=== PATIENT | male | born 1945 | race Caucasian/White ===

== ENCOUNTER 2020-03-31 10:03 | Emergency (ER) | payer OTHER ==
[~2020-03-31] VITALS: Ht 167.6 cm; Wt 82.1 kg
[~2020-03-31 10:03] MED LIST: ADULT ASPIRIN R81 MG PO; CAPZASIN-HP42.5 GM TOP; IBUPROFEN400 MG PO; LIPITOR40 MG PO; LISINOPRIL10 MG PO; LOSARTAN POTASS50 MG PO; MELOXICAM7.5 MG PO; NASACORT10.8 ML NAS; OCEAN104 ML NAS; OCUVITE TABLET1 EAC1 PO; OMEPRAZOLE20 MG PO; VITAMIN D350 MC3 PO
[2020-03-31] MEDS ORDERED: OCUVITE ADULT1 EAC1 PO (11:09)
[2020-03-31] MEDS ORDERED: LIPITOR80 MG PO (12:13)
--- NOTE | 2020-03-31 13:54 | EKG ---
[facility] [address] [facility] [place] [address] Signed Normal sinus rhythm Normal ECG When compared with ECG of 15-JAN-2020 13:48, Criteria for Septal infarct are no longer present Borderline criteria for Lateral infarct are no longer present Confirmed by TK BAEZ DO ([id number]) on 03/31/2020 1:54:01 PM Electronically Signed By: TK BAEZ DO 03/31/20 1354 PATIENT NAME: CEE HONEYCUTT Electrocardiogram DATE OF : 47 PHYSICIAN: TK BAEZ DO REPORT #: [id number] REPORT IS CONFIDENTIAL AND NOT TO BE RELEASED WITHOUT AUTHORIZATION
== END 2020-03-31 12:52 | disposition home or self-care (01) ==
LOC: ED 10:03
DX: G45.9 Transient cerebral ischemic attack, unspecified (principal); I10 Essential (primary) hypertension; K21.9 Gastro-esophageal reflux disease without esophagitis; Z86.73 Personal history of transient ischemic attack (TIA), and cerebral infarction without residual deficits; Z79.899 Other long term (current) drug therapy
CPT/HCPCS: 70450; 70496; 70498; 80053; 84484; 85025; 85610; 85730; 93005; 93010; 99284-25; Q9967

== ENCOUNTER 2020-04-15 03:52 | Emergency (ER) | payer OTHER ==
[~2020-04-15] VITALS: Ht 167.6 cm; Wt 82.1 kg
[~2020-04-15 03:52] MED LIST changes: +LIPITOR80 MG PO; +OCUVITE ADULT1 EAC1 PO
--- OUTSIDE RECORDS SUMMARY | 2020-04-15 03:54 | XMS ---
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 Berta has no Care Guidelines for this patient. Jerald VISIT COUNT (12 [address] [facility] [address] [address] TOTAL 3 NOTE: Visits indicate total known visits. ED/C VISIT TRACKING (12 MO.) 04/15/2020 03:52 [facility] [address] [place] TYPE: Emergency COMPLAINT: - STOMACH PAIN 03/31/2020 10:04 [facility] [place] TYPE: Emergency COMPLAINT: - DIZZINESS DIAGNOSES: - Personal history of transient ischemic attack (TIA), and cerebral infarction without residual deficits - Dizziness and giddiness - Other skilled nursing (current) drug therapy - Gastro-esophageal reflux disease without esophagitis - Transient cerebral ischemic attack, unspecified - Essential (primary) hypertension 01/14/2020 20:41 [facility] [place] TYPE: Emergency COMPLAINT: - STROKE SYMPTOMS INPATIENT VISIT TRACKING (12 MO.) 01/14/2020 20:42 [facility] [place] TYPE: Observation COMPLAINT: - CVA DIAGNOSES: - Cerebral infarction, unspecified - rn long term care (current) use of aspirin - Gastro-esophageal reflux disease without esophagitis - Contact with and (suspected) exposure to other viral communicable diseases - Essential (primary) hypertension - Other skilled nursing (current) drug therapy [email or web address]
== END 2020-04-15 08:48 | disposition home or self-care (01) ==
LOC: ED 03:52
DX: K20.80 Other esophagitis without bleeding (principal); I10 Essential (primary) hypertension; K21.9 Gastro-esophageal reflux disease without esophagitis; Z86.73 Personal history of transient ischemic attack (TIA), and cerebral infarction without residual deficits; Z79.899 Other long term (current) drug therapy
CPT/HCPCS: 74160; 76705; 80053; 81001; 83690; 85025; 99284-25; J1170; J2405; J7030; Q9967

== ENCOUNTER 2020-08-10 07:48 | Inpatient (IN) | payer OTHER ==
[~2020-08-10] VITALS: Ht 167.6 cm; Wt 83.2 kg
[2020-08-10] MEDS ORDERED: CELEBREX50 MG PO (08:38)
[2020-08-10] MEDS ORDERED: OCUVITE TABLET1 EAC1 PO (08:40)
[2020-08-10] MEDS ORDERED: SINGULAIR10 MG PO (08:42)
[2020-08-10] MEDS ORDERED: NORVASC5 MG PO (08:45)
[2020-08-10] MEDS ORDERED: DILTIAZEM ER60 MG PO (08:45)
[2020-08-10] MEDS ORDERED: PROVENTIL HFA6.7 GM INH ×2 (08:51→08:52)
[2020-08-10] MEDS ORDERED: ALVESCO6.1 G1 INH ×2 (08:53→15:55)
[2020-08-10] MEDS ORDERED: CARAFATE1 GM PO (08:55)
--- NOTE | 2020-08-10 14:44 | NUR ---
PATIENT ADMITTED TO MED SURG, X2 GUARDS IN ROOM. PATIENT REPORTS NO NAUSEA, ABD PAIN 3/10.
--- NOTE | 2020-08-10 15:05 | NUR ---
ASSESSMENT COMPLETE. PT ALERT AND ORIENTED. STATES THAT PAIN IS IN RUQ; 3/10 CURRENTLY. CMS INTACT. IVF FLUSHED. IVF INFUSING PER ORDER. CHARGE NURSE ADRIANO DOING ADMITTING HX. NO FURTHER NEEDS AT THIS TIME.
[2020-08-10] MEDS ORDERED: LO-DOSE ASPIRIN81 M1 PO (15:50)
[2020-08-10] MEDS ORDERED: LIDOCAINE35.44 GM TOP (15:51)
[2020-08-10] MEDS ORDERED: ONDANSETRON ODT4 MG SL (15:53)
--- NOTE | 2020-08-10 16:18 | NUR ---
IN ROOM FOR PERPETUAL INVENTORY CLERK. PT REPORTS SOME NAUSEA. 4MG IV ZOFRAN ADMINISTERED PRIOR TO AMLODIPINE. PT THEN UP TO TOILET TO VOID. CARE HOME GUARDS ASSISTING PT TO TOILET. GUARDS TO CALL IF PT NEEDS HELP
--- NOTE | 2020-08-10 17:23 | NUR ---
CHECKED ON PT. PT SLEEPING LEFT LATERAL. 2 NEW GUARDS IN ROOM . CALL LIGHT WITHIN REACH.
--- NOTE | 2020-08-10 19:29 | NUR ---
SHIFT REPORT RECEIVED FROM YANIRA GONZALEZ. GUARDS IN ROOM. NO NEDEDS. CALL LIGHT IN REACH.
--- NOTE | 2020-08-10 20:42 | NUR ---
IN TO GET VITALS FOR RN, DUMPED URINAL AT THIS TIME, NO FURTHER NEEDS, RN IN RM ALSO
--- NOTE | 2020-08-10 20:58 | NUR ---
ASSESSMENT COMPLETED. SCHEDULED MEDS PROVIDED. PT ABD PAIN 6/10, PRN PAIN MED PROVIDED. GCS 15, A&O X4. LUNGS CLEAR, HEART TONES REGULAR. ABD SOFT, NONTENDER, PT STATES SLIGHTLY DISTENDED, BOWEL TONES ACTIVE. IV WNL, CDI, FLUSHED WELL. SCDs ON. CMS INTACT. PT IS NPO, TOLERATING WELL. IV FLUIDS INFUSING PER ORDER. NO OTHER NEEDS. GUARDS IN ROOM.
--- NOTE | 2020-08-10 21:56 | NUR ---
SCHEDULED MED PROVIDED. NO OTHER NEEDS. GUARDS IN ROOM.
--- NOTE | 2020-08-10 22:02 | NUR ---
IV PUMP WAS BEEPING, IT IS NOW INFUSING FINE PT DENIES NEEDS. CALL LIGHT IS CLOSE.
--- NOTE | 2020-08-11 00:05 | NUR ---
PT RESTING IN BED. GUARDS IN ROOM. NO NEEDS AT THIS TIME.
--- NOTE | 2020-08-11 02:08 | NUR ---
ASSESSMENT, VS AND I&O COMPLETED. GCS 15, A&O X4. LUNGS CLEAR, HEART TONES REGULAR. ABD SOFT, NONTENDER WITH PALPATION, MILDLY DISTENDED, BOWEL TONES ACTIVE. CMS INTACT. IV WNL, INFUSING PER ORDER. GUARDS IN ROOM. PT STATES PAIN IS 2/10, "FINE".
--- NOTE | 2020-08-11 02:10 | NUR ---
IN TO GET PT VITALS, NO FURTHER NEEDS
--- NOTE | 2020-08-11 06:00 | NUR ---
SCHEDULED MEDS PROVIDED. I.S. EDUCATION PROVIDED. VS AND I&O COMPLETED. NO OTHER NEEDS. GUARDS IN ROOM.
--- NOTE | 2020-08-11 06:30 | NUR ---
PT TOLERATED IV FLUIDS WELL LAST NIGHT. VSS. UOS. PAIN MANAGED WITH PRN MEDS. AFEBRILE. ABD SOFT, TENDER, BOWEL TONES ACTIVE, PT STATES MILDLY DISTENDED. PT TOLERATED MEDS WELL. IV WNL. NO NAUSEA. I.S. EDUCATION PROVIDED.
--- NOTE | 2020-08-11 08:12 | NUR ---
PATIENT AWAKE IN BED, 2 OFFICERS IN ROOM. PATIENT PROVIDED WITH PRE-SURGICAL WIPES. SMALL AMOUNT OF FRESH WATER AND CLEAN SPONGE FOR MOUTH PROVIDED WELL
--- NOTE | 2020-08-11 08:45 | NUR ---
IN TO GIVE PT MORNING MEDICATIONS. SURGICAL TUBING HUNG. PREOP CHECKLIST WAS COMPLETED PRIOR TO SHIFT CHANGE. BP MEDICATIONS GIVEN W/ SMALL SIPS OF WATER. SPONGES AT BEDSIDE FOR ORAL CARE. PT DENIES ANY ABDOMINAL PAIN AT THIS TIME. STATES HIS PAIN IS MORE CHRONIC NECK/BACK PAIN AND IS NOT BOTHERING HIM AT THE MOMENT. VSS. CALL LIGHT IN REACH. NO OTHER NEEDS AT THIS TIME.
--- NOTE | 2020-08-11 10:00 | NUR ---
SURGICAL WIPEDOWN COMPLETE AND PT GIVEN NEW GOWN. EOCI GUARDS ASSISTED W/ WIPEDOWN. PT DENIES ABD PAIN AT THIS TIME. TIME. BACK TO BED, SCD'S IN PLACE. CEFAZOLIN TAPED TO LR W/ SURGICAL TUBING. CALL LIGHT IN REACH.
--- NOTE | 2020-08-11 12:15 | NUR ---
PT TAKEN TO SURGERY BY FERNIE NIETO RN.
--- NOTE | 2020-08-11 15:54 | NUR ---
08/11/20 1554 Janeen Holder 1538- PT ARRIVES TO PACU NONAROUSABLE TO NOXIOUS STIMULI. PT SNORING. JAW THRUST PERFORMED AND SNORING CLEARS. RESP EVEN AND UNLABORED. OXYGEN SAT HIGH 90'S TO 100% ON 6L VIA MASK. GUARD AT THE BEDSIDE PLACING ANKLE RESTRAINTS. 1545- PT WAKES UP COUGHING. PT'S ABD HELD WHILE HE COUGHS. PT UPDATED THAT HE IS DONE WITH SURGERY AND IN THE RECOVERY ROOM. PT NODS HIS HEAD. PT REPORTS NO PAIN OR NAUSEA AND FALLS BACK TO SLEEP. 1551- SECOND GUARD ARRIVES TO PACU.
--- NOTE | 2020-08-11 16:30 | NUR ---
TO RETURNED TO UNIT VIA STRETCHER ACCOMPANIED BY MEDICAL OFFICE SPECIALIST CECILY. PT ON 2 L NC, MEDICAL OFFICE SPECIALIST REPORTS HE WAS DESATING TO HIGH 80'S ON ROOM AIR AFTER SURGERY. PT DENIES PAIN AT THIS TIME. ACTICOAT DRESSING TO RUQ C,D,I. BOWEL TONES HYPOACTIVE IN ALL REGIONS. LUNG SOUNDS CLEAR, DIM IN BASES. BLE WEAKNESS PT IS STILL VERY DROWSY AFTER SURGERY. DENIES NAUSEA. RESUMED LR @ 85 MLS/HR. EOCI GAURDS IN ROOM. NO OTHER NEEDS AT THIS TIME. SCD'S ON. CALL LIGHT IN REACH.
--- NOTE | 2020-08-11 17:30 | NUR ---
VSS. PT REMAINS ON 2 L @ 97%. REMAINS SLIGHTLY DROWSY THOUGH FULLY ORIENTED. DENIES PAIN & NAUSEA. TOLERATING SIPS OF WATER. ASKED IF HE'D LIKE TO ORDER DINNER, PT REFUSED. WILL CHECK BACK.
--- NOTE | 2020-08-11 18:39 | NUR ---
PATIENT IS RESTING IN BED, VITALS ARE STABLE, PATIENT RATES ABD PAIN 2/10 AND SEEMS TO BE COMFORTABLE. X2 GUARDS IN ROOM WITH PATIENT.
--- NOTE | 2020-08-11 19:20 | NUR ---
SHIFT REPORT RECEIVED FROM ROSANGELA GONZALEZ. PT RESTING IN BED, STATES PAIN IS 3/10. GUARDS IN ROOM.
--- NOTE | 2020-08-11 19:43 | NUR ---
IN ROOM TO COMPLETE POST-OP VS, VSS. pt ON RA, O2 SAT 93%. RR EVEN AND UNLABORED, 22. NO DISTRESS NOTED, pt AWOKE TO VOICE AND REPORTS PAIN IS STARTING TO FEEL "UNCOMFORTABLE". GUARDS X2 IN ROOM. NO FURTHER NEEDS AT THIS TIME, CALL LIGHT IN REACH. PRIMARY RN TOM BLEDSOE.
--- NOTE | 2020-08-11 20:24 | NUR ---
IN TO GET VITALS, I&Os IN, RN TO BE IN RM FOR MEDS, NO FURTHER NEEDS AT THIS TIME
--- NOTE | 2020-08-11 20:42 | NUR ---
ASSESSMENT COMPLETED. PAIN IN ABD 10/26, PRN PAIN MED PROVIDED. SCHEDULED MEDS PROVIDED. GCS 15, A&0 X4. LUNGS CLEAR, HEART TONES REGULAR. ABD SOFT, TENDER, PT STATES NORMAL, BOWEL TONES HYPOACTIVE. PT URINATING WELL. DRESSINGS INTACT. EARNEST WNL, SS DRAINAGE. CMS INTACT. IV WNL, CDI, FLUSHED WELL. GUARDS IN ROOM.
--- NOTE | 2020-08-11 22:25 | NUR ---
scheduled meds provided.
--- NOTE | 2020-08-12 00:22 | NUR ---
PT ABD PAIN 9/10, PRN PAIN MED PROVIDED. NO OTHER NEEDS. GUARDS IN ROOM.
--- NOTE | 2020-08-12 01:58 | NUR ---
IN TO GET 2 AM VITALS, ICE PACKS REFRESHED, NO FURTHER NEEDS
--- NOTE | 2020-08-12 02:28 | NUR ---
CALL LIGHT ON, IN TO ADJ SCDS, RT CUFF WAS LOOSE, RN IN TO ASSESS PT
--- NOTE | 2020-08-12 02:30 | NUR ---
ASSESSMENT COMPLETED. PT PAIN 5/10, DENIES NEED FOR INTERVENTION. ABD SOFT, TENDER, ALL SITES WNL. ABD MILDLY DISTENDED. CMS INTACT. SCDs ON. IV FLUIDS INFUSING PER ORDER. GUARDS IN ROOM.
--- NOTE | 2020-08-12 02:58 | NUR ---
CALL LIGHT ON, IN TO FIX SCDS AFTER PT WAS UP TO VOID, NO FURTHER NEEDS
--- NOTE | 2020-08-12 05:20 | NUR ---
IN TO GET VITALS WHILE RN WAS IN RM AND PT WAS AWAKE, URINAL EMPTIED AT THIS TIME, PT DECLINED A REFILL OF WATER AND IS CONTENT WITH USING THE ORAL SWABS
--- NOTE | 2020-08-12 05:20 | NUR ---
PT PAIN 6/10, SCHEDULED PAIN MED PROVIDED. SCHEDULED MED PROVIDED. EARNEST EMPTIED, 5ML SS DISCHARGE. DRESSINGS WNL, SMALL SS DISCHARGE AT EARNEST SITE. NO OTHER NEEDS AT THIS TIME. CALL LIGHT IN REACH.
--- NOTE | 2020-08-12 06:24 | NUR ---
PT PAIN MANAGED WITH SCHEDULED AND PRN PAIN MEDS. PT STATES HE HAS ACHES AND THEN SHOOTING PAINS RANGING FROM 5/10-9/10. PT IS PASSING GAS. ABD MILDLY DISTENDED, SOFT, TENDER, BOWEL TONES ACTIVE. DRESSINGS WNL, EARNEST SITE DRESSING CHANGED DUE TO SMALL AMOUNT OF SS DRAINAGE. EARNEST HAD 10 ML SS TOAL OUTPUT THIS SHIFT. PT TOLERATED SOME SNACKS LAST NIGHT. UOS. VSS.
--- NOTE | 2020-08-12 07:05 | NUR ---
HANDOFF REPORT RECEIVED FROM CABLE INSTALLATION MANAGER RN.
--- NOTE | 2020-08-12 08:18 | NUR ---
PT RESTING IN BED, PT RATING PAIN 7/10 TO ABD, GIVEN TORADOL PRN. PT ON ROOM AIR, LUNG SOUNDS CLEAR, DENIES SOB. PT DENIES NAUSEA, BOWEL TONES ACTIVE, HAS NOT PASSED FLATUS, DISCUSSED WALKING IN [place] TO HELP INCREASE GUT MOTILITY, PT AGREEABLE. CMS INTACT, WITHOUT EDEMA. SCDS IN PLACE. ABD WITH RUQ ACTICOAT DRESSING, CDI. UMBILICAL AND RUQ LAP SITES WITH STERI STRIPS, OLD DRAINAGE. EARNEST DRAIN WITH SMALL AMOUNT OF SEROSANGUINOUS DRAINAGE IN BUMB, LINE STRIPPED. DISCUSSED PLAN OF CARE. PT AWAITING BREAKFAST AND THEN PLAN FOR WALK IN [place] WITH NUNRSING STAFF. SAMY ARRIETA AT BEDSIDE.
[2020-08-12] MEDS ORDERED: ACETAMINOPHEN500 MG PO (10:48)
[2020-08-12] MEDS ORDERED: HYDROCODON-ACE1 EA10 PO (10:50)
--- NOTE | 2020-08-12 11:04 | OR ---
[facility] [address], [place] [address] Signed DATE OF OPERATION: 08/11/2020 SURGEON: Thomas Matthews MD PREOPERATIVE DIAGNOSES: 1. Acute calculous cholecystitis. 2. 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 POSTOPERATIVE DIAGNOSIS: Severe acute on chronic calculous cholecystitis; purulence within gallbladder. PROCEDURE: 1. Laparoscopic cholecystectomy converted to open cholecystectomy with intraoperative cholangiogram, prolonged, complicated, difficult. 2. Surgeon-directed fluoroscopy. ANESTHESIA: General endotracheal; Destinee Joycelyn, PROCESS ENG and local 20 mL of 0.25% Marcaine with epinephrine. INDICATION: This 74-year-old white man is a prisoner at [facility]. He presents to the emergency room on 08/10/2020 with right upper abdominal pain. He has had long standing right subscapular pain also, but generally known to have chronic back pain located elsewhere also. He had a similar episode in March of this past year. The patient has had persistent right upper abdominal pain. Previous imaging studies showed no sign of gallstones. A CT scan was performed under the direction of Dr. Field, which showed a 1.1 impacted gallstone, possibly in the cystic duct with subtle pericholecystic fat stranding and hyperemia within the adjacent liver, but without significant gallbladder wall thickening concerning for cholecystitis. There is diffuse gastric wall thickening suggestive of underlying gastritis. Additionally noted both now and in the past with imaging there was a duodenal diverticulum. The patient's liver enzymes are only mildly elevated with a bilirubin of 1.9 at admission and 2.1 today. His AST is normal, ALT elevated at 80, previously 129, alkaline phosphatase normal at 77. The patient has been given fluid resuscitation, IV antibiotics, and now to undergo cholecystectomy preferably by laparoscopic approach. The risk of bleeding, infection, bile duct injury, and so forth were reviewed in detail. Electronically Signed By: THOMAS MATTHEWS MD 08/12/20 1104 PATIENT NAME: CEE HONEYCUTT OPERATIVE REPORT DATE OF : 47 REPORT #: [id number] PHYSICIAN: THOMAS MATTHEWS MD PCP: IGOR CASON NP REPORT IS CONFIDENTIAL AND NOT TO BE RELEASED WITHOUT AUTHORIZATION [facility] [address], [place] [address] Signed I have reviewed also the CT scan closely with Dr. Simon and the area in question regarding stone, cystic duct findings and so forth are reviewed and diagnosis highly consistent with acute cholecystitis. FINDINGS: Severe inflammatory changes were noted in the subcostal area. Dense omental adhesions to the gallbladder were such that it simply could not be dissected free laparoscopically and on that basis, conversion open operation was required. On open operation, dense omental adhesions to the undersurface of gallbladder were reaffirmed. The plane was extremely difficult, friable and the gallbladder itself was somewhat decompressed, definitely thickened and markedly chronically and acutely inflamed. The duodenum itself was dissected free without visualization of the known duodenal diverticulum. The common duct was ultimately visualized, as was the cystic duct. The cystic duct was of uncertain viability. It did allow for cholangiogram, which showed no sign of filling defects within the biliary tree. Of special note, a 1.5 cm dark oval gallstone was noted that had indeed been impacted into the neck of the gallbladder and cystic duct. Within the gallbladder itself was what appeared to be purulent material and certainly no bile within the gallbladder. The extent of inflammation was so profound that bivalve cholecystectomy was required, but the cystic duct was well controlled. The cystic duct with its marginal viability was secured not with clips but rather with over-sewing using a 4-0 PDS suture. A drain was placed. Of note, the operation was quite prolonged, complicated and difficult lasting four times longer than usual. DESCRIPTION OF PROCEDURE: The patient was brought to the operating room, given a general endotracheal anesthetic. Preoperative antibiotic Ancef had been given. Sequential compression device stockings used and heparin subcutaneously administered. The abdomen was prepared with a chlorhexidine solution and draped sterilely. An infraumbilical incision was made and using an open Lily cannula technique pneumoperitoneum was achieved to a level of 14 mmHg of carbon dioxide gas. Intraabdominal inspection showed no signs of ascites or carcinomatosis. The liver had a mild chronically inflamed appearance but no cirrhosis proper. The omental adhesions to the undersurface of the liver were such that the gallbladder was not visualized at all at that point. Three additional trocars were placed in usual configuration in the subxiphoid, right midclavicular, and right anterior axillary line. Omental adhesions to the anterior abdominal wall were taken down with blunt electrocautery dissection. This allowed for dissection of omentum against the undersurface of the liver and the gallbladder. With meticulous care, a plane was created, but it was so intensely inflamed and densely inflamed that further dissection with a laparoscopic approach would be quite unlikely to be successful and conversion to open operation was deemed unavoidable. Electronically Signed By: THOMAS MATTHEWS MD 08/12/20 1104 PATIENT NAME: CEE HONEYCUTT OPERATIVE REPORT DATE OF : 47 REPORT #: [id number] PHYSICIAN: THOMAS MATTHEWS MD PCP: IGOR CASON NP REPORT IS CONFIDENTIAL AND NOT TO BE RELEASED WITHOUT AUTHORIZATION [facility] [address], [place] [address] Signed The trocars were removed under direct visualization showing no sign of bleeding. The infraumbilical fascial incision was reapproximated with 0 Vicryl suture. Utilizing at least one of the trocar sites, a right subcostal incision was made in the standard way using a #15 blade for division of the skin and subcutaneous tissue and electrocautery incising the anterior rectus sheath, the rectus muscle itself and the posterior rectus sheath and its attendant peritoneum. The abdomen was entered without problem. Then, a Bookwalter retractor was used. The dense omental adhesions to the gallbladder were quite profound. At 1st, it was thought possible he maybe developed a cholecystoenteric fistula, but with further dissection using blunt and minimal cautery dissection and sharp dissection, the gallbladder could be freed from surrounding omentum. Ultimately, the duodenum was identified as well. Mindful that there was a duodenal diverticulum, special care was taken in this regard as well. The gallbladder appeared to be contracted and essentially flat and partially intrahepatic. The gallbladder was quite markedly inflamed acutely but also chronically and markedly thickened and doughy. Consideration of possible neoplasm was also made, but under the circumstances more or likely inflamed only. It was clear that after exposure of the gallbladder with lengthy dissection that a bivalve approach was going to be necessary. Using electrocautery, the gallbladder wall was incised near the margin of the gallbladder on the liver edge superiorly and ultimately taken inferiorly. Upon entry into the gallbladder there appeared to be purulent material. This was Gram stain and cultured. There was no stone immediately visible. The back wall of the gallbladder was intensely inflamed and without obvious sign of retained typical mucosa. Dissection was carried towards the infundibulum, although the gallbladder was not large it was meticulously dissected so as to avoid any common duct injury or anything of that sort. Egress seen from what appeared to be the distal gallbladder was a dark 1.5 cm smooth oval gallstone likely that seen on CT scan. Further dissection allowed for identification of the cystic duct itself which appeared marginally viable. This was dissected medially and ultimately identified was the common bile duct which was completely unharmed and uninvolved. A tonsil clamp was applied to the cystic duct remnant and gallbladder and junction of the cystic duct was excised in its entirety. With careful manipulation, a cholangiocatheter was passed into the cystic duct remnant secured with a clip. Free flow of saline was noted. Using surgeon directed fluoroscopy, intraoperative cholangiography was undertaken showing free flow of contrast in biliary tree. There was somewhat of the delay in emptying into the duodenum and the distal ampulla was somewhat narrowed, but only for a few mm and flow into the duodenum was noted to be complete. The cystic duct was reasonably generous in its fluoroscopic appearance. Proximal filling showed no sign of abnormality. Re-establishment of exposure with the Bookwalter retractor was accomplished and Electronically Signed By: THOMAS MATTHEWS MD 08/12/20 1104 PATIENT NAME: CEE HONEYCUTT OPERATIVE REPORT DATE OF : 47 REPORT #: [id number] PHYSICIAN: THOMAS MATTHEWS MD PCP: IGOR CASON NP REPORT IS CONFIDENTIAL AND NOT TO BE RELEASED WITHOUT AUTHORIZATION [facility] [address] [place] [id number] Signed clips applied to cystic duct remnant. The cystic duct appeared to be of marginal viability and further dissection more medially was undertaken. It was not a large enough stump for which application of clips was deemed advisable and on that basis the cystic duct stump was oversewn with running 4-0 PDS suture, securing it completely. Irrigation was undertaken. The mucosa of the back wall of the gallbladder was left in situ and was cauterized. Through one of the trocar sites on the right side, a 7 mm flat Jarrod drain was placed in the subhepatic space and this was secured to the skin with nylon suture. Irrigation was undertaken and excess irrigation fluid suctioned free. Attention was turned towards closure. The posterior sheath and the anterior rectus sheath were reapproximated with running #1 PDS suture after irrigation of the muscular layer. Subcutaneous tissue was irrigated and skin closed with a running subcuticular 3-0 Vicryl. The umbilical trocar site was similarly reapproximated. The drain was attached to bulb suction. The patient was ultimately extubated and transferred to the recovery room in good condition having suffered no complications. Sponge, needle, and instrument counts were reported as correct x3. The operation was prolonged, complicated, and difficult related to extent of his inflammation dissection and requirement for an open procedure, and on that basis, would be considered quite challenging. MD MALINA Trimble/LAITHL /[id number] cc: MELISSA Urias MD Copies: IGOR CASON NP, BRET Electronically Signed By: THOMAS MATTHEWS MD 08/12/20 1104 PATIENT NAME: CEE HONEYCUTT OPERATIVE REPORT DATE OF : 47 REPORT #: [id number] PHYSICIAN: THOMAS MATTHEWS MD PCP: BLOODIGOR NP REPORT IS CONFIDENTIAL AND NOT TO BE RELEASED WITHOUT AUTHORIZATION [address] [place], [place] [address] Signed TIMA FIELD MD ~ Electronically Signed By: THOMAS MATTHEWS MD 08/12/20 1104 PATIENT NAME: CEE HONEYCUTT OPERATIVE REPORT DATE OF : 47 REPORT #: [id number] PHYSICIAN: THOMAS MATTHEWS MD PCP: IGOR CASON NP REPORT IS CONFIDENTIAL AND NOT TO BE RELEASED WITHOUT AUTHORIZATION
--- NOTE | 2020-08-12 11:28 | NUR ---
REPORT CALLED TO [facility] NURSE. DISCHARGE INSTRUCTIONS REVIEWED WITH PT. IV CATH REMOVED. DISCHARGE PACKET GIVEN TO [facility] BREAKFAST HOST. PT EATING LUNCH AND THEN WILL CALL TO GET DRESSED. PT DENIES OTHER NEEDS AT THIS TIME.
--- NOTE | 2020-08-13 13:29 | DS ---
[facility] [address], [place] [address] Signed ADMISSION DATE: 08/10/2020 DISCHARGE DATE: 08/12/2020 REASON FOR ADMISSION: This 74-year-old white man is a prisoner at [facility]. He was sent from the [facility] to the emergency room with concerns about poorly-controlled hypertension as well as ongoing right upper abdominal pain. His blood pressure was actually reasonably well controlled upon presentation. The patient has had right upper abdominal and right subscapular pain and an episode similar in March of 2020 at which time, he underwent a CAT scan of the abdomen which showed a large duodenal diverticulum. He also had a small hiatal hernia. The patient was put on a proton pump inhibitor medication as well as Carafate. Evaluation in the emergency room included a CT scan of the abdomen and ultrasound previously noted had showed no sign of gallstones. A CT scan performed on presentation on 08/10/2020 showed what appeared to be a 1.1 cm likely impacted stone in the cystic duct with pericholecystic fat stranding, hyperemia of the liver consistent with acute cholecystitis. He is admitted for further evaluation and care. PERTINENT PHYSICAL EXAMINATION: GENERAL: Showed a well-developed, well-nourished, nontoxic, elderly white man. He did have tenderness in the right upper abdomen. He did not have ascites. CHEST: Clear. HEART: Regular. ABDOMEN: Without distention, but did have tenderness in the right upper abdomen. EXTREMITIES: Show no clubbing, cyanosis, or edema. HOSPITAL COURSE: He was admitted, given intravenous antibiotic Ancef. Close review of the CT scan with radiologist affirmed the high probability of a gallstone wedged in the infundibulum or cystic duct itself. The duodenal diverticulum appeared to be noninflamed and non-perforated. Comparison views of prior imaging studies were undertaken. He did have some benign cystic-appearing lesions of the liver as well. On 11/11/2020, the patient underwent laparoscopy AND WAS found to have dense adherence of omentum to the undersurface of the liver as well as right upper abdominal wall. Lysis of adhesions allowed for better dissection, but a laparoscopic approach was found to be quite impossible to mobilize the omentum from the underlying gallbladder to which it was densely adhesed. On that basis, conversion to open operation was undertaken through a right subcostal incision. He was found to have [id number] inflammatory changes of Electronically Signed By: THOMAS MATTHEWS MD 08/13/20 1329 PATIENT NAME: CEE HONEYCUTT DISCHARGE SUMMARY DATE OF : 47 REPORT #: [id number] PHYSICIAN: THOMAS MATTHEWS MD PCP: KATE CASON NP REPORT IS CONFIDENTIAL AND NOT TO BE RELEASED WITHOUT AUTHORIZATION [facility] [address], [place] [address] Signed the gallbladder. The gallbladder was flattened, largely intrahepatic, and quite markedly and intensely inflamed. A bivalve cholecystectomy was performed, which showed purulence within the gallbladder lumen. A single 1.5 cm gallstone, which was oblong, smooth, and dark was extracted through the area of the infundibulum and cystic duct. The cystic duct was dissected free and although of uncertain viability, did allow for cholangiogram, which was essentially normal. The cystic duct was oversewn rather than clipped due to its marginal viability and a drain was placed. Postoperatively, he had marked improvement. There was no sign of bile leaking from the drain. Under normal circumstances, I would remove the drain. However, given the marginal viability of the cystic duct remnant that has been oversewn, it is more prudent to leave the drain in for at least 7 days and if no bile leak develops, remove at that point. If a bile leak does develop, obviously we would keep the drain in until it seal spontaneously which it would do. He will be discharged back to the [facility] with instructions to lift no more than 20 pounds for the next 4 weeks. The drain will remain in place. Emptying of the drain and maintenance of suction on the drain will be of importance. The drain can be removed by personnel at [facility] if they feel comfortable with it in 7 days so long as there was no bile leak. If a bile leak is noted, it should stay in place until the bile leak has resolved. I will be happy to remove the drain 7 days from now or later in the office setting if more comfortable by the [facility] personnel, however, the drain certainly can remain in place until I am back out at the [facility] the [facility] at the [facility] in the next few weeks. The patient will maintain a regular diet. DISCHARGE MEDICATIONS: Will include: 1. [place] 5/325 one p.o. q.6 hours p.r.n. pain #10. 2. Tylenol plain 1 g p.o. q.6 hours p.r.n. pain #30 refill one. 3. Motrin 600 mg p.o. q.6 hours p.r.n. pain #30 refill one. The patient will resume his other medications, which include: 1. Capsaicin cream, apply topically daily as needed. 2. Omeprazole 40 mg p.o. daily. 3. Atorvastatin 80 mg p.o. daily. 4. Celecoxib 100 mg p.o. b.i.d. 5. Ocuvite vitamin 1 p.o. daily. 6. Montelukast (Singulair) 10 mg tablets p.o. daily. Electronically Signed By: THOMAS MATTHEWS MD 08/13/20 1329 PATIENT NAME: CEE HONEYCUTT DISCHARGE SUMMARY DATE OF : 47 REPORT #: [id number] PHYSICIAN: THOMAS MATTHEWS MD PCP: KATE CASON NP REPORT IS CONFIDENTIAL AND NOT TO BE RELEASED WITHOUT AUTHORIZATION [facility] [address], [place] [address] Signed 7. Amlodipine (Norvasc) 5 mg p.o. daily. 8. Diltiazem 60 mg extended release p.o. b.i.d. 9. Albuterol sulfate inhaler 2 puffs daily as needed for shortness of breath. 10. Alvesco 6.1 g handheld inhaler b.i.d. one puff. 11. Carafate 1 g p.o. b.i.d. for 15 days. 12. Aspirin enteric-coated 81 mg p.o. daily. 13. Zofran ODT 4 mg tablets b.i.d. as needed for nausea. I suspect that he will be able to be withdrawn from his omeprazole and Carafate going forward. DISCHARGE DIAGNOSES: 1. [id number] severe acute calculus cholecystitis, status post laparoscopy with conversion to open cholecystectomy with cholangiogram prolonged complicated difficult on August 11, 2020. 2. Longstanding back pain. 3. Dyslipidemia. 4. Hypertension. 5. (Probable) asymptomatic duodenal diverticulum. MD MALINA Trimble/MODL /[id number] cc: Kate Cason NP Copies: KATE CASON NP ~ Electronically Signed By: THOMAS MATTHEWS MD 08/13/20 1329 PATIENT NAME: CEE HONEYCUTT DISCHARGE SUMMARY DATE OF : 47 REPORT #: [id number] PHYSICIAN: THOMAS MATTHEWS MD PCP: KATE CASON NP REPORT IS CONFIDENTIAL AND NOT TO BE RELEASED WITHOUT AUTHORIZATION
== END 2020-08-12 11:45 | disposition home or self-care (01) | DRG 416 ==
LOC: ED 07:48 → MS 13:35
PROVIDERS: ADMIT Surgery; ATTEND Surgery
PROC: BF101ZZ Fluoroscopy of Bile Ducts using Low Osmolar Contrast (ICD-10-PCS; 2020-08-11)
PROC: 0FT40ZZ Resection of Gallbladder, Open Approach (ICD-10-PCS; principal; 2020-08-11 11:15)
PROC: 0FJ44ZZ Inspection of Gallbladder, Percutaneous Endoscopic Approach (ICD-10-PCS; 2020-08-11 11:15)
DX: K80.12 Calculus of gallbladder with acute and chronic cholecystitis without obstruction (principal); Z20.822 Contact with and (suspected) exposure to COVID-19; I10 Essential (primary) hypertension; K21.9 Gastro-esophageal reflux disease without esophagitis; G89.29 Other chronic pain; M54.9 Dorsalgia, unspecified; E78.5 Hyperlipidemia, unspecified; K57.10 Diverticulosis of small intestine without perforation or abscess without bleeding; Z53.31 Laparoscopic surgical procedure converted to open procedure; Z86.73 Personal history of transient ischemic attack (TIA), and cerebral infarction without residual deficits; Z85.828 Personal history of other malignant neoplasm of skin; Z79.899 Other long term (current) drug therapy; Z79.1 Long term (current) use of non-steroidal anti-inflammatories (NSAID); Z79.82 Long term (current) use of aspirin
CPT/HCPCS: 00790; 36415; 74160; 74300; 80053; 83690; 85025; 94640; 94664; 94760; 96375; 99285-25; C9803; J0330; J0690; J1170; J1644; J1885; J2001; J2250; J2270; J2405; J2704; J7040; J7121; Q9967; U0003

== ENCOUNTER 2021-08-16 09:26 | Emergency (ER) | payer OTHER ==
[~2021-08-16] VITALS: Ht 167.6 cm; Wt 83.0 kg
[~2021-08-16 09:26] MED LIST changes: +ACETAMINOPHEN500 MG PO; +ALVESCO6.1 G1 INH; +CARAFATE1 GM PO; +CELEBREX50 MG PO; +DILTIAZEM ER60 MG PO; +HYDROCODON-ACE1 EA10 PO; +LIDOCAINE35.44 GM TOP; +LO-DOSE ASPIRIN81 M1 PO; +NORVASC5 MG PO; +ONDANSETRON ODT4 MG SL; +PROVENTIL HFA6.7 GM INH; +SINGULAIR10 MG PO
[2021-08-16] MEDS ORDERED: CLARITIN10 M2 PO (10:26)
[2021-08-16] MEDS ORDERED: TOPROL XL50 MG PO (10:26)
[2021-08-16] MEDS ORDERED: OMEPRAZOLE20 MG PO (10:34)
--- NOTE | 2021-08-16 11:44 | EKG ---
[facility] [address] [facility] [place], [place] [address] Signed Sinus bradycardia Otherwise normal ECG When compared with ECG of 31-MAR-2020 10:22, No significant change was found Confirmed by FREDDY VILLANUEVA MD ([id number]) on 08/16/2021 11:44:32 AM Electronically Signed By: FREDDY VILLANUEVA MD 08/16/21 1144 PATIENT NAME: CEE HONEYCUTT Electrocardiogram DATE OF : 47 PHYSICIAN: FREDDY VILLANUEVA MD REPORT #: [id number] REPORT IS CONFIDENTIAL AND NOT TO BE RELEASED WITHOUT AUTHORIZATION
== END 2021-08-16 14:30 | disposition home or self-care (01) ==
LOC: ED 09:26
DX: G43.909 Migraine, unspecified, not intractable, without status migrainosus (principal); G45.9 Transient cerebral ischemic attack, unspecified; I10 Essential (primary) hypertension; K21.9 Gastro-esophageal reflux disease without esophagitis; Z79.899 Other long term (current) drug therapy; Z79.82 Long term (current) use of aspirin
CPT/HCPCS: 70450; 70496; 70498; 70551; 71045; 80053; 85025; 85610; 85730; 93005; 93010; 99284-25; Q9967